=== PATIENT | male | born 1995 | race African-American/Black ===

== ENCOUNTER → 2023-01-09 | Day surgery (SDC) | payer SELFPAY ==
[~2023-01-09] MED LIST: ACETAMINOPHEN 1000 MG/100 ML 100 ML IV ONE; BUPIVACAINE HCL 0.5% INJ 30 ML VIAL INJ ONE; CEFAZOLIN SODIUM 2 GM ONE; FENTANYL CITRATE/PF 100MCG/2 ML INJ ONE; HYDROCODONE/APAP 5MG-325MG TAB ONE; HYDROMORPHONE 2MG/ML 2 MG/ML ML ONE; LACTATED RINGER'S 1,000 ML ONE; MIDAZOLAM HCL 2 MG/2 ML VIAL ONE; ROPIVACAINE 0.5% 5 MG/ML 30 ML SDV ONE; SUGAMMADEX SODIUM 200 MG/2 ML VIAL IV ONE
[2023-01-09 12:40] VITALS: TEMP 97.3
[2023-01-09] MEDS: FENTANYL CITRATE/PF 100MCG/2 ML INJ ONE ×2 (13:32→15:20)
[2023-01-09 14:27] VITALS: BP 137/83; PULSE 50; RESP 18; O2SAT 100
== END | disposition home or self-care (01) ==
LOC: OR 08:52
PROVIDERS: ATTEND Orthopaedic Surgery Foot and Ankle Surgery
DX: S86.012A Strain of left Achilles tendon, initial encounter (principal); X58.XXXA Exposure to other specified factors, initial encounter; Y93.67 Activity, basketball; Y99.8 Other external cause status
CPT/HCPCS: 27650; 76000; C1713 ×2; J0131; J1170; J2250; J2795; J3010; J7121